=== PATIENT | female | born 1980 | race Caucasian/White ===

== ENCOUNTER 2021-08-04 16:00 | Emergency (ER) | payer SELFPAY ==
[2021-08-04 16:28] VITALS: BP 119/77; PULSE 70; TEMP 98.4; BMI 22.2
[2021-08-04] MEDS ORDERED: ALBUTEROL SO4 2.5/IPRATROPIUM 0.5 INH SOL 3 ML VIAL.NEB. NEB ONE ×2 (17:18→17:20)
[2021-08-04] MEDS ORDERED: IBUPROFEN 600 MG TABLET (FP) PO ONE ×2 (18:02→18:03)
[2021-08-05 13:08] LABS: SARS-CoV-2 NAA Not Detected (Not Detected)
== END 2021-08-04 18:45 | disposition home or self-care (01) ==
LOC: FER 16:00
PROC: 3E0F7GC Introduction of Other Therapeutic Substance into Respiratory Tract, Via Natural or Artificial Opening (ICD-10-PCS; principal; 2021-08-04)
DX: R05.1 Acute cough (principal); R06.02 Shortness of breath
CPT/HCPCS: 99283-25; C9803; U0003; U0005

== ENCOUNTER 2024-07-22 21:51 | Emergency (ER) | payer OTHER ==
[2024-07-22 21:59] VITALS: BP 113/75; TEMP 98.5; BMI 20.2
[2024-07-22] MEDS ORDERED: methylPREDNISolone NA SUCC 125 MG/2 ML VIAL ONE (22:25)
[2024-07-22] MEDS ORDERED: MAGNESIUM SULFATE IN WATER 2 GM/50 ML IVPB IVPB ONE (22:26)
[2024-07-22 22:50] LABS: BASO % 0.5 % (0-2.0); EOS % 3.8 % (0-4.5); HEMATOCRIT 40.4 % (32.4-45.2); HEMOGLOBIN 13.3 GM/dL (10.7-15.3); LYMPH % 19.4 % (8-40); MCHC 32.9 g/dl (32.0-36.0); MEAN CELL VOLUME 91.2 fl (80-96); MEAN PLT VOLUME 7.5 fl (7.5-11.1); MONO % 8.7 % (3.8-10.2); NEUT % 67.6 % (42.8-82.8); PLATELET COUNT 249 10^3/uL (134-434); RBC 4.43 M/mm3 (3.60-5.2); RDW 14.2 % (11.6-15.6); VENOUS BASE EXCESS -0.4 mmol/L (-2-2); VENOUS O2 SATURATION 68.2 % (70-80); VENOUS PCO2 36.5 mmHg (38-52); VENOUS PH 7.427 (7.310-7.410); WHITE BLOOD COUNT 11.5 K/mm3 (4.0-10.0)
[2024-07-22] MEDS: MAGNESIUM SULFATE IN WATER 2 GM/50 ML IVPB IVPB ONE (22:53)
[2024-07-22] MEDS: methylPREDNISolone NA SUCC 125 MG/2 ML VIAL IVPB ONE (22:53)
[2024-07-22 23:12] LABS: POTASSIUM 3.3 mmol/L (3.5-5.1)
[2024-07-22 23:14] LABS: CALCIUM 9.1 mg/dL (8.5-10.1)
[2024-07-22 23:15] LABS: BLOOD UREA NITROGEN 21.4 mg/dL (7-18)
[2024-07-22 23:18] LABS: CREATININE 0.8 mg/dL (0.55-1.3)
[2024-07-22 23:19] LABS: BILIRUBIN,TOTAL 0.3 mg/dL (0.2-1)
[2024-07-22 23:20] LABS: TOT PROT 7.7 g/dl (6.4-8.2)
[2024-07-23 00:33] VITALS: PULSE 105; RESP 26
[2024-07-23] MEDS ORDERED: IPRATROPIUM BR 0.02% 0.5 MG/2.5 ML VIAL.NEB. NEB ONE (00:42)
[2024-07-23] MEDS ORDERED: ALBUTEROL SO4 2.5/IPRATROPIUM 0.5 INH SOL 3 ML VIAL.NEB. NEB ONE (00:42)
[2024-07-23] MEDS ORDERED: ALBUTEROL SO4 0.083% IH SOL 2.5 MG/3 ML VIAL.NEB. NEB ONE (00:42)
[2024-07-23] MEDS: ALBUTEROL SO4 2.5/IPRATROPIUM 0.5 INH SOL 3 ML VIAL.NEB. NEB ONE (00:44)
== END 2024-07-23 01:24 | disposition home or self-care (01) ==
LOC: JER 21:51
PROC: 3E033GC Introduction of Other Therapeutic Substance into Peripheral Vein, Percutaneous Approach (ICD-10-PCS; principal; 2024-07-22)
PROC: 3E033GC Introduction of Other Therapeutic Substance into Peripheral Vein, Percutaneous Approach (ICD-10-PCS; 2024-07-22)
DX: J45.909 Unspecified asthma, uncomplicated (principal); R06.02 Shortness of breath; R05.9 Cough, unspecified; R07.9 Chest pain, unspecified; M79.622 Pain in left upper arm; R00.0 Tachycardia, unspecified; Z20.822 Contact with and (suspected) exposure to COVID-19
CPT/HCPCS: 0241U-QW; 36415; 71045-TC-FY; 80053; 82803; 83735; 84484; 84703; 85025; 96365; 96375; 99284-25